=== PATIENT | male | born 1980 | race Caucasian/White ===

== ENCOUNTER 2016-12-07 17:44 | Emergency (ER) | payer OTHER ==
[2016-12-07] MEDS ORDERED: AMOXICILLIN 500 MG CAPSULE PO ONE (17:51)
--- NOTE | 2016-12-07 17:57 | PDOC ---
Sore Throat/Dental Pain HPI - General Chief Complaint: Nasal/Mouth Problem /Injury Stated Complaint: RIGHT UPPER TOOTH PAIN Date Seen by Provider: 12/07/16 Time Seen by Provider: 17:52 Source: POSITIVE: Patient Exam Limitations: POSITIVE: No limitations Nurse's Notes Reviewed & Considered: Yes - History of Present Illness Initial Comments: Patient comes in today with chief complaint of right upper dental pain. 2 days ago patient broke tooth and called his dentist in [facility]. He will be seen when he returns and is awaiting his truck to be loaded here in [place]. Has sinus drainage and congestion ongoing. Denies any fever or chills or sweats, nausea vomiting or diarrhea, hematuria dysuria, no rashes. Location: Dental (Upper) Timing: REPORTS: Abrupt Duration: <1 week (2 Days) Severity: Moderate Quality: REPORTS: "Pain", Stabbing, Throbbing Context: REPORTS: Fractured Tooth Modifying Factors: improves with: Cold Associated Symptoms: REPORTS: Runny Nose, Congestion, Toothache Similar Symptoms Previously: No Recently seen/treated/hospitalized: No Any Prior Injuries Related to Current Complaint?: No - Patient Home Medications Home Medications: Home Medications Acetaminophen [Tylenol] 1,000 mg PO PRN 12/07/16 Naproxen Sodium [Aleve] 440 mg PO Q12H 12/07/16 - Patient Allergies Allergies/Adverse Reactions: Allergies Allergy/AdvReac Type Severity Reaction Status Date / Time No Known Allergies Allergy Unverified 12/07/16 17:48 ROS - Limitations ROS Limitations: No Limitations Constitution: REPORTS: Denies Symptoms Cardiovascular: REPORTS: Denies Cardiac Symptoms Respiratory: REPORTS: Denies Resp Symptoms Neurological: REPORTS: Denies Neuro Symptoms Gastrointestinal: REPORTS: Denies GI Symptoms Endocrine: REPORTS: Denies Symptoms Musculoskeletal: REPORTS: Denies MS Symptoms Genitourinary: REPORTS: Denies Symptoms Eyes: REPORTS: Denies Symptoms ENT: REPORTS: Congestion, Nasal Drainage, Dental Pain Skin: REPORTS: Denies Skin Symptoms Lympathic: REPORTS: Denies Lympathic Symptoms Immunologic: POSITIVE: Denies Symptoms Psychiatric: POSITIVE: Denies Psych Symptoms Sore Throat/Dental Pain Exam - General Appearance General Appearance: REPORTS: Alert, Cooperative, No Acute Distress, No Evidence of Trauma - HEENT Head / Face: POSITIVE: Atraumatic, Normal Inspection, No Facial Swelling Eyes: POSITIVE: Inspection Normal, PERRL, EOM's Intact, Eyelids Uninjured, Sclera Normal Ears: POSITIVE: Ears Normal Inspection, Auricle Normal Nose: POSITIVE: No Apparent Trauma, Nares Normal, Purulent Nasal Drainage Oropharynx: POSITIVE: External Inspection Nml, Pharynx Inspect. Nml, Airway Intact, Voice Normal, Moist Mucous Membranes, Lips Normal, Gums Normal, No Drooling, No Thrush Dental: POSITIVE: Dental Injury - Respiratory Respiratory: REPORTS: No Respiratory Distress, Speaks Full Sentences - Abdomen Abdomen: Denies Tenderness: (All Quadrants) - Extremities Extremity: Non-Tender: (All Extremities), Normal ROM: (All Extremities), Normal Inspection: (All Extremities) - Skin Skin: REPORTS: Intact, Normal For Race, Warm, Dry, No Rash - Neurological / Psychological Neurological: POSITIVE: Affect Apporpriate, Oriented X3 Sore Throat/Dental Progress - Patient's Progress Status: POSITIVE: Improved MDM / ED Course: Patient was examined. He receives oral Amoxil and [place] as dispensed a prescription for amoxicillin and for [place] are provided. His instructions are to follow up with his primary care physician, and his dentist. - Consult Counseled: POSITIVE: Patient, RE: DX, RE: Need for F/U Patient Care Time - Estimated PCT Patient Care Time (In Minutes): 10 Vital Signs - VS Reviewed Vital Signs Reviewed: Yes Discharge Clinical Impression: Broken tooth, Sinusitis Discharge Disposition: Discharged to Home Condition: Good Patient Instructions Given at Discharge: Toothache (ED), Sinusitis (ED)
[2016-12-07 17:59] VITALS: RESP 12; TEMP 98.3
[2016-12-07] MEDS ORDERED: HYDROcodone-APAP 5 MG -325 MG TABLET PO SCH (18:00)
== END 2016-12-07 18:13 | disposition home or self-care (01) ==
LOC: ER 17:44
DX: S02.5XXA Fracture of tooth (traumatic), initial encounter for closed fracture (principal); J01.90 Acute sinusitis, unspecified
CPT/HCPCS: 99282